=== PATIENT | female | born 1950 | race Caucasian/White ===

== ENCOUNTER → 2020-08-25 | Outpatient (CLI) | payer MEDICARE, OTHER ==
[~2020-08-25] MED LIST: CLOPIDOGREL75 MG PO; ECOTRIN81 MG PO; ISOSORBIDE DINI10 MG PO; LEVOTHYROXINE150 MC1 PO; NEURONTIN600 MG PO
[2020-08-25 10:48] LABS: HEMOGLOBIN 16.4 gm/dl (12.3-15.3); RED BLOOD COUNT 5.4 M/UL (4.00-5.10); WHITE BLOOD COUNT 8.4 K/UL (4.5-11.0)
== END ==
LOC: OPSV2 09:30
PROVIDERS: Nurse Practitioner Pediatrics
DX: C22.9 Malignant neoplasm of liver, not specified as primary or secondary (principal); I25.10 Atherosclerotic heart disease of native coronary artery without angina pectoris; J44.9 Chronic obstructive pulmonary disease, unspecified
CPT/HCPCS: 36415; 85025; 93005

== ENCOUNTER 2020-08-26 09:05 | Day surgery (SDC) | payer MEDICARE, OTHER ==
[~2020-08-26] VITALS: Ht 165.1 cm; Wt 68.0 kg
[2020-08-26] MEDS ORDERED: ISOSORBIDE DINI10 MG PO (09:55)
[2020-08-26] MEDS ORDERED: NEURONTIN600 MG PO (09:55)
[2020-08-26] MEDS ORDERED: CLOPIDOGREL75 MG PO (09:56)
[2020-08-26] MEDS ORDERED: LEVOTHYROXINE150 MC1 PO (09:56)
[2020-08-26] MEDS ORDERED: ECOTRIN81 MG PO (09:56)
== END 2020-08-26 21:05 | disposition home or self-care (01) ==
LOC: OR 09:05 → MED SURG 4 13:01 → OR 21:05
DX: C22.9 Malignant neoplasm of liver, not specified as primary or secondary (principal); K74.60 Unspecified cirrhosis of liver; E11.9 Type 2 diabetes mellitus without complications; I11.9 Hypertensive heart disease without heart failure; E07.9 Disorder of thyroid, unspecified; I25.10 Atherosclerotic heart disease of native coronary artery without angina pectoris; E78.5 Hyperlipidemia, unspecified; J44.9 Chronic obstructive pulmonary disease, unspecified; K21.9 Gastro-esophageal reflux disease without esophagitis; F17.210 Nicotine dependence, cigarettes, uncomplicated; Z85.048 Personal history of other malignant neoplasm of rectum, rectosigmoid junction, and anus; Z95.5 Presence of coronary angioplasty implant and graft; Z79.82 Long term (current) use of aspirin; Z79.02 Long term (current) use of antithrombotics/antiplatelets; Z79.899 Other long term (current) drug therapy
CPT/HCPCS: 36415; 71045; 76942; 77001; 85610; 85730; 88341; 88342; 88360; 88365; C1769; C1788; J0690; J1100; J1642; J2001; J2405; J2704; J3010; J7030; J7040; J7120

== ENCOUNTER → 2021-01-15 | Outpatient (CLI) | payer MEDICARE, OTHER | LOC: MAMO 12-25 10:30 | DX: Z12.31 Encounter for screening mammogram for malignant neoplasm of breast (principal) | CPT/HCPCS: 77063; 77067 ==